=== PATIENT | male | born 1960 | race Hispanic/Latino ===

== ENCOUNTER 2018-01-26 15:00 | Inpatient (IN) | payer OTHER ==
[~2018-01-26] VITALS: Ht 175.3 cm; Wt 126.6 kg
[2018-02-16 16:30] LABS: BASOPHILS % (AUTO) 0.7 % (0.0-5.0); EOSINOPHILS % (AUTO) 4.1 % (0.0-8.0); HEMATOCRIT 42.5 % (42-54); MEAN CORPUSCULAR HEMOGLOBIN 33.4 pg (27.0-33.0); MEAN CORPUSCULAR VOLUME 95.5 fL (79-99); MONOCYTES % (AUTO) 5.1 % (3.0-13.0); NEUTROPHILS % (AUTO) 61.1 % (40.0-77.0); NUCLEATED RED BLOOD CELLS 0.1 % (0.0-0.19); PLATELET COUNT (AUTO) 249 K/uL (130-400); RED BLOOD CELL COUNT(AUTO) 4.45 MIL/uL (4.50-6.20); RED CELL DISTRIBUTION WIDTH 12.4 % (11.0-15.5)
[2018-02-16 16:31] VITALS: BP 124/77
[2018-02-16 16:33] LABS: APPEARANCE,URINE Clear (CLEAR); BILIRUBIN,URINE Negative (NEGATIVE); COLOR,URINE Yellow (YELLOW); GLUCOSE, URINE (UA) Negative (NEGATIVE); KETONES,URINE Negative (NEGATIVE); LEUKOCYTE ESTERASE ,URINE Negative (NEGATIVE); NITRATE,URINE Negative (NEGATIVE); OCCULT BLOOD,URINE Negative (NEGATIVE); PH,URINE 6.5 (5.0-8.0); PROTEIN,URINE Negative (NEGATIVE)
[2018-02-16 16:42] LABS: POTASSIUM 3.8 mmol/L (3.5-5.1)
[2018-02-16 16:52] LABS: INR 0.93 (0.85-1.15); PARTIAL THROMBOPLASTIN TIME 27.5 SEC (26.3-35.5); PROTHROMBIN TIME 9.8 SEC (9.6-11.6)
[2018-02-16] MEDS ORDERED: ATOR40TA71 PO (16:52)
[2018-02-16] MEDS ORDERED: ASPI-1181 PO (16:52)
[2018-02-16] MEDS ORDERED: VENL-63 PO (16:52)
[2018-02-16] MEDS ORDERED: METO-408 PO (16:52)
[2018-02-16] MEDS ORDERED: TRAZ150T79 PO (16:52)
[2018-02-16] MEDS ORDERED: BUSP10TA3 PO (16:52)
[2018-02-16] MEDS: CEFAZOLIN SODIUM 1 GM VIAL IVP SCH (17:45)
[2018-02-17] VITALS (20 sets, daily range): BP systolic 112–154; BP diastolic 67–92
[2018-02-17] MEDS ORDERED: ACETAMINOPHEN EXTRA STRENGTH 500 MG TABLET ONE (08:11)
[2018-02-17] MEDS ORDERED: METOCLOPRAMIDE 10 MG/2 ML VIAL ONE (08:11)
[2018-02-17] MEDS ORDERED: CELECOXIB 200 MG CAP ONE (08:12)
[2018-02-17] MEDS ORDERED: LACTATED RINGERS 1000ML 1,000 ML IV ONE (08:12)
[2018-02-17] MEDS ORDERED: OXYCODONE HCL 10 MG TAB.SR.12H PO ONE (08:12)
[2018-02-17] MEDS ORDERED: KETOROLAC TROMETHAMINE 15MG/ML ONE (08:12)
[2018-02-17] MEDS ORDERED: LIDOCAINE PF 2% 5ML ABBOJECT ONE (08:18)
[2018-02-17] MEDS ORDERED: ROCURONIUM BROMIDE 10MG/1ML 5ML VL ONE (08:18)
[2018-02-17] MEDS ORDERED: MIDAZOLAM HCL 1 MG/ML 2ML VIAL ONE (08:19)
[2018-02-17] MEDS ORDERED: PROPOFOL 10 MG/ML 20ML VIAL IV ONE ×2 (08:19→12:51)
[2018-02-17] MEDS ORDERED: FENTANYL CITRATE PF 50 MCG/1 ML 5ML AMP IV ONE (08:19)
[2018-02-17] MEDS ORDERED: ROPIVACAINE 0.5% 5MG/ML 30ML IJ ONE (08:22)
[2018-02-17] MEDS ORDERED: BUPIVACAINE/PF 0.25% 30ML VIAL IJ ONE (09:37)
[2018-02-17] MEDS ORDERED: EPINEPHRINE 1 MG/ML AMPULE ONE (09:38)
[2018-02-17] MEDS: CEFAZOLIN SODIUM 1 GM VIAL IVP SCH (10:25)
[2018-02-17] MEDS: CEFAZOLIN SODIUM 1 GM VIAL ONE ×2 (10:25→11:50)
[2018-02-17] MEDS: TRANEXAMIC ACID 1000MG/10ML IV ONE ×2 (10:35→13:10)
[2018-02-17] MEDS ORDERED: NEOSTIGMINE 5MG/5ML SYR IV ONE (12:29)
[2018-02-17] MEDS ORDERED: LIDOCAINE HCL-MPF 1% 2ML VIAL IVP PRN (12:45)
[2018-02-17] MEDS ORDERED: OXYCODONE HCL 5 MG TAB PO PRN (12:45)
[2018-02-17] MEDS ORDERED: POTASSIUM CHLORIDE 20 MEQ ERTAB PO PRN (12:45)
[2018-02-17] MEDS ORDERED: KETOROLAC TROMETHAMINE 15MG/ML IV PRN (12:45)
[2018-02-17] MEDS ORDERED: DiphenhydrAMINE HCL 50 MG/ML VIAL IVP PRN (12:45)
[2018-02-17] MEDS ORDERED: TEMAZEPAM 15 MG CAPSULE PO PRN (12:45)
[2018-02-17] MEDS ORDERED: POTASSIUM CHLORIDE 20MEQ/100ML 100 ML IV PRN (12:45)
[2018-02-17] MEDS ORDERED: TRAMADOL HCL 50 MG TABLET PO PRN (12:45)
[2018-02-17] MEDS ORDERED: POTASSIUM CHLORIDE 10% ELIXIR 20 MEQ/15 ML UDCUP PO PRN (12:45)
[2018-02-17] MEDS ORDERED: FERROUS FUMARATE 324 MG TABLET PO PRN (12:45)
[2018-02-17] MEDS ORDERED: CALCIUM CARBONATE 500 MG TABLET PO PRN (12:45)
[2018-02-17] MEDS ORDERED: ONDANSETRON HCL 4 MG/2 ML VIAL IVP PRN (12:45)
[2018-02-17] MEDS ORDERED: GLYCOPYRROLATE 0.2 MG/ML 5 ML VIAL ONE (12:50)
[2018-02-17] MEDS ORDERED: ONDANSETRON HCL MDV 20ML 2 MG/ML VIAL ONE (12:51)
[2018-02-17] MEDS ORDERED: MEPERIDINE-PF 25 MG/ML SYG ONE (13:23)
[2018-02-17] MEDS: SODIUM CHLORIDE 0.9% 1000ML 1,000 ML IV SCH ×2 (14:41→23:07)
[2018-02-17] MEDS: ACETAMINOPHEN EXTRA STRENGTH 500 MG TABLET PO SCH ×2 (14:57→20:47)
[2018-02-17] MEDS: CEFAZOLIN 3GM /D5W 100ML 100 ML IV SCH (17:00)
[2018-02-17] MEDS ORDERED: CEFAZOLIN 3GM /D5W 100ML 100 ML IV SCH (17:45)
[2018-02-17] MEDS ORDERED: CEFAZOLIN SODIUM 1 GM VIAL IVP SCH (17:45)
[2018-02-17] MEDS: TRAZODONE HCL 50 MG TAB PO SCH (20:42)
[2018-02-17] MEDS: BUSPIRONE HCL 5 MG TABLET PO SCH (20:42)
[2018-02-17] MEDS: ATORVASTATIN CALCIUM 40 MG TABLET PO SCH (20:43)
[2018-02-17] MEDS: CELECOXIB 200 MG CAP PO SCH (20:45)
[2018-02-17] MEDS: FAMOTIDINE 20MG TAB 20 MG TAB PO SCH (20:45)
[2018-02-17] MEDS: PREGABALIN 25 MG CAP PO SCH (20:45)
[2018-02-17] MEDS: ASPIRIN 325 MG TABLET PO SCH (20:46)
[2018-02-17] MEDS: VENLAFAXINE HCL XR 37.5 MG CAP PO SCH (20:46)
[2018-02-17] MEDS: METOPROLOL TARTRATE 25 MG TAB PO SCH (20:47)
[2018-02-18] VITALS (7 sets, daily range): BP systolic 118–149; BP diastolic 78–89
[2018-02-18] MEDS: CEFAZOLIN 3GM /D5W 100ML 100 ML IV SCH (02:29)
[2018-02-18] MEDS: ACETAMINOPHEN EXTRA STRENGTH 500 MG TABLET PO SCH ×3 (04:04→19:51)
[2018-02-18 05:16] LABS: HEMATOCRIT 32.8 % (42-54); MEAN CORPUSCULAR HEMOGLOBIN 35.5 pg (27.0-33.0); MEAN CORPUSCULAR VOLUME 95.9 fL (79-99); PLATELET COUNT (AUTO) 224 K/uL (130-400); RED BLOOD CELL COUNT(AUTO) 3.42 MIL/uL (4.50-6.20); RED CELL DISTRIBUTION WIDTH 12.7 % (11.0-15.5); WHITE BLOOD COUNT (AUTO) 8.9 K/uL (4.8-10.8)
[2018-02-18 05:19] LABS: POTASSIUM 3.7 mmol/L (3.5-5.1)
[2018-02-18] MEDS: CELECOXIB 200 MG CAP PO SCH ×2 (08:31→19:52)
[2018-02-18] MEDS: TAMSULOSIN HCL 0.4 MG CAP.ER.24H PO SCH (08:31)
[2018-02-18] MEDS: PREGABALIN 25 MG CAP PO SCH ×2 (08:31→19:45)
[2018-02-18] MEDS: FAMOTIDINE 20MG TAB 20 MG TAB PO SCH ×2 (08:31→19:51)
[2018-02-18] MEDS: SODIUM CHLORIDE 0.9% 1000ML 1,000 ML IV SCH (08:31)
[2018-02-18] MEDS: METOPROLOL TARTRATE 25 MG TAB PO SCH ×2 (08:32→19:46)
[2018-02-18] MEDS: ASPIRIN 325 MG TABLET PO SCH ×2 (08:32→19:45)
[2018-02-18] MEDS: POLYETHYLENE GLYCOL 3350 17 GM POWD.PACK PO SCH (08:32)
[2018-02-18] MEDS: BUSPIRONE HCL 5 MG TABLET PO SCH ×3 (08:35→19:51)
[2018-02-18] MEDS: VENLAFAXINE HCL XR 37.5 MG CAP PO SCH ×2 (08:35→19:51)
[2018-02-18] MEDS: OXYCODONE HCL 5 MG TAB PO PRN ×2 (08:35→18:01)
[2018-02-18] MEDS: ATORVASTATIN CALCIUM 40 MG TABLET PO SCH (19:52)
[2018-02-18] MEDS: TRAZODONE HCL 50 MG TAB PO SCH (19:52)
[2018-02-19] MEDS: ACETAMINOPHEN EXTRA STRENGTH 500 MG TABLET PO SCH ×2 (03:53→11:59)
[2018-02-19 04:00] VITALS: BP 131/85
[2018-02-19] MEDS: POLYETHYLENE GLYCOL 3350 17 GM POWD.PACK PO SCH (08:37)
[2018-02-19] MEDS: PREGABALIN 25 MG CAP PO SCH (08:37)
[2018-02-19] MEDS: TAMSULOSIN HCL 0.4 MG CAP.ER.24H PO SCH (08:37)
[2018-02-19] MEDS: VENLAFAXINE HCL XR 37.5 MG CAP PO SCH (08:37)
[2018-02-19] MEDS: ASPIRIN 325 MG TABLET PO SCH (08:37)
[2018-02-19] MEDS: METOPROLOL TARTRATE 25 MG TAB PO SCH (08:37)
[2018-02-19] MEDS: OXYCODONE HCL 5 MG TAB PO PRN ×2 (08:38→18:20)
[2018-02-19] MEDS: FAMOTIDINE 20MG TAB 20 MG TAB PO SCH (08:38)
[2018-02-19] MEDS: CELECOXIB 200 MG CAP PO SCH (08:38)
[2018-02-19] MEDS: BUSPIRONE HCL 5 MG TABLET PO SCH ×2 (08:38→14:20)
[2018-02-19 11:32] VITALS: BP 136/80
[2018-02-19] MEDS ORDERED: ASPI-1012 PO (14:04)
[2018-02-19] MEDS ORDERED: HYDR-2132 PO (14:04)
[2018-02-19 16:51] VITALS: BP 134/75
[2018-02-20] MEDS ORDERED: BISACODYL 10 MG SUPP.RECT RC PRN (12:45)
== END 2018-02-19 18:40 | disposition home health service (06) | DRG 470 ==
LOC: EDSTATUS 15:00 → DAHIP 02-17 07:24 → 4AH 02-17 13:00
PROVIDERS: ADMIT Orthopaedic Surgery; ATTEND Orthopaedic Surgery
PROC: 0SRD0J9 Replacement of Left Knee Joint with Synthetic Substitute, Cemented, Open Approach (ICD-10-PCS; principal; 2018-02-17 09:30)
DX: M17.12 Unilateral primary osteoarthritis, left knee (principal); G89.29 Other chronic pain; F41.9 Anxiety disorder, unspecified; I10 Essential (primary) hypertension; F32.9 Major depressive disorder, single episode, unspecified; F43.10 Post-traumatic stress disorder, unspecified; Z82.49 Family history of ischemic heart disease and other diseases of the circulatory system
CPT/HCPCS: 36415; 80048; 81003; 85025; 85027; 85610; 85730; 88305; 88311; 96374; 96375; 97039; A4218; J0171; J0690; J1885; J2001; J2175; J2250; J2704; J2710; J2765; J2795; J3010; J3490; J7030; J7120

== ENCOUNTER → 2020-12-12 | Outpatient (CLI) | payer OTHER ==
[~2020-12-12] MED LIST: ASPI-1012 PO; ATOR40TA71 PO; BUSP10TA3 PO; HYDR-2132 PO; METO-408 PO; TRAZ150T79 PO; VENL-63 PO
== END | disposition home or self-care (01) ==
LOC: SHCH 13:18
PROVIDERS: ATTEND Internal Medicine Cardiovascular Disease
DX: I35.8 Other nonrheumatic aortic valve disorders (principal); I10 Essential (primary) hypertension
CPT/HCPCS: 93306

== ENCOUNTER → 2023-03-20 | Outpatient (CLI) | payer OTHER ==
[~2023-03-20] MED LIST changes: +IOHEXOL 350 MG/ML 100ML INFUS..BTL IV ONE
== END | disposition home or self-care (01) ==
LOC: RAH 11:11
PROVIDERS: ATTEND Internal Medicine Cardiovascular Disease
DX: R07.9 Chest pain, unspecified (principal)
CPT/HCPCS: 75574; Q9967

== ENCOUNTER 2025-03-29 17:25 | Emergency (ER) | payer OTHER ==
[~2025-03-29] VITALS: Ht 175.3 cm; Wt 122.5 kg
[~2025-03-29 17:25] MED LIST changes: -IOHEXOL 350 MG/ML 100ML INFUS..BTL IV ONE
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
[2025-03-29 18:06] LABS: IMMATURE GRANULOCYTE ABSOLUTE 0.02 K/uL (0-1); NUCLEATED RED BLOOD CELLS 0.0 % (0.0-0.19); PLATELET COUNT (AUTO) 256 K/uL (130-400); RED BLOOD CELL COUNT(AUTO) 4.49 MIL/uL (4.50-6.20); RED CELL DISTRIBUTION WIDTH 12.2 % (11.0-15.5); WHITE BLOOD COUNT (AUTO) 6.5 K/uL (4.8-10.8)
[2025-03-29] MEDS: LIDOCAINE HCL 2% VISCOUS 15 ML UDCUP PO ONE (18:07)
[2025-03-29] MEDS: MAG/ALUM/SIMETH 30 ML UDCUP PO ONE (18:07)
[2025-03-29] MEDS: DICYCLOMINE HCL 10 MG/5 ML ML PO ONE (18:07)
[2025-03-29 18:18] LABS: CREATININE 1.1 mg/dL (0.5-1.3); GLOMERULAR FILTR. RATE CALC 75.0 mL/min (>90); GLUCOSE,RANDOM 189.0 mg/dL (70-105); SODIUM SERUM 139.0 mmol/L (136-145); UREA NITROGEN, BLOOD 12.0 mg/dL (7-18)
[2025-03-29 18:23] LABS: ASPARTATE AMINOTRANSFERASE 33.0 U/L (10-37); CREATINE KINASE, TOTAL 67.0 U/L (21-232); TOTAL PROTEIN, SERUM 7.9 g/dL (6.0-8.3)
--- NOTE | 2025-03-29 18:23 | HMCIMG ---
EXAM: CR Chest, 1 View. CLINICAL HISTORY: cp COMPARISON: None provided. FINDINGS: LUNGS: The lungs show no infiltrate or other acute finding. PLEURAL SPACES: No evidence of pleural effusion or pneumothorax. MEDIASTINUM: Cardiac size and mediastinal contours within normal limits. BONES: No aggressive appearing osseous lesion seen. IMPRESSION: No acute cardiopulmonary pathology is evident. /[place]
[2025-03-29 18:26] LABS: APPEARANCE,URINE CLEAR (CLEAR); GLUCOSE, URINE (UA) 300 mg/dL (NEGATIVE); LEUKOCYTE ESTERASE ,URINE NEGATIVE Leu/uL (NEGATIVE); NITRATE,URINE NEGATIVE (NEGATIVE); OCCULT BLOOD,URINE NEGATIVE (NEGATIVE)
[2025-03-29 18:40] LABS: ADD UA MICROSCOPIC YES
[2025-03-29 18:42] LABS: SQUAMOUS EPITHELIAL CELL,UR RARE /HPF (0-2)
[2025-03-29] MEDS: CYCLOBENZAPRINE HCL 10 MG TABLET PO ONE (18:48)
[2025-03-29] MEDS ORDERED: CYCL10TA16 PO (18:58)
[2025-03-29] MEDS ORDERED: MELO-106 PO (18:58)
[2025-03-29 19:17] VITALS: BP 159/90; PULSE 82; RESP 16; TEMP 97; O2SAT 97
--- NOTE | 2025-03-30 07:04 | EKG ---
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
== END 2025-03-29 19:22 | disposition home or self-care (01) ==
LOC: EDH 17:25
DX: S16.1XXA Strain of muscle, fascia and tendon at neck level, initial encounter (principal); R07.89 Other chest pain; R10.13 Epigastric pain; E78.00 Pure hypercholesterolemia, unspecified; F32.A Depression, unspecified; F43.10 Post-traumatic stress disorder, unspecified; I10 Essential (primary) hypertension; Z79.1 Long term (current) use of non-steroidal anti-inflammatories (NSAID); Z79.82 Long term (current) use of aspirin; Z79.899 Other long term (current) drug therapy; X58.XXXA Exposure to other specified factors, initial encounter; Y93.89 Activity, other specified; Y92.89 Other specified places as the place of occurrence of the external cause; Y99.8 Other external cause status
CPT/HCPCS: 99285; 71045; 82550; 80076; 84484; 80048; 83690; 85025; 81001; 36415; 96372; 93005; J1885

== ENCOUNTER 2025-07-28 19:58 | Emergency (ER) | payer OTHER ==
[~2025-07-28] VITALS: Ht 177.8 cm; Wt 112.0 kg
[~2025-07-28 19:58] MED LIST changes: +CYCL10TA16 PO; +MELO-106 PO
--- NOTE | 2025-07-28 20:13 | ERN ---
ED Note History of Present Illness Stated Complaint: WHEEZING, SOB Chief Complaint: Multiple Complaints Time Seen by MD: 20:00 Dictation: PATIENT IS A 65-YEAR-OLD MALE COMING IN WITH HIS WITH COMPLAINTS OF FEVER CHILLS A PRODUCTIVE COUGH AND BODY ACHES FOR THE LAST SEVEN DAYS. HE HAS HAD NO NAUSEA VOMITING NO LOSS OF TASTE OR SMELL. STATES HE HAS A HISTORY OF CHOLESTEROL AND HYPERTENSION HAS NOT BEEN TAKING HIS MEDICATIONS BECAUSE HE HAS BEEN DRINKING WE WILL NYQUIL [id number] FOR HIS FEVER CHILLS. STATES HE GOES TO THE [facility] HOWEVER DID NOT GOT GO BECAUSE HE WAS NOT SURE THEY WOULD SEE HIM HAS A WALK. Allergies: Coded Allergies: No Known Drug Allergies (Unverified Allergy, Unknown, 02/16/18) Home Meds Active Scripts Cyclobenzaprine HCl (Flexeril) 10 Mg Tab, 10 MG PO TID for muscle sstiffness, #14 TAB 0 Refills Prov:MICHAEL ORTIZ 03/29/25 Meloxicam (Meloxicam) 7.5 Mg Tablet, 1 TAB PO DAILY for pain for 30 Days, #30 TAB 0 Refills Prov:MICHAEL ORTIZ 03/29/25 Hydrocodone Bit/Acetaminophen ([place] 5/325Mg) 1 Tab Tablet, 1-2 TAB PO Q6H for pain, #90 TAB Prov:DIPAK ORLANDO MD 02/19/18 Aspirin (ASPIRIN) 325 Mg Tablet, 325 MG PO BID, #40 TAB Prov:DIPAK ORLANDO MD 02/19/18 Reported Medications Metoprolol Succinate (Metoprolol Succinate) 25 Mg Tab.er.24h, 25 MG PO HS, TAB 02/16/18 Atorvastatin Calcium (Atorvastatin Calcium) 40 Mg Tablet, 40 MG PO HS, TAB 02/16/18 Buspirone HCl (Buspirone HCl) 10 Mg Tablet, 20 MG PO TID, TAB 02/16/18 Venlafaxine HCl (Venlafaxine HCl ER) 150 Mg Cap.er.24h, 150 MG PO BID, CAPSULE.DR 02/16/18 Trazodone HCl (Trazodone HCl) 150 Mg Tablet, 150 MG PO HS, TAB 02/16/18 Past Medical History Past Medical History: Anxiety, Depression, High Cholesterol, Heart Disease, Hypertension, Other Additional Past Medical Hx: PTSD Surgical History: Other Surgical History Other: LEFT KNEE RN Note Reviewed/Agreed w/PFSH: Yes Review of System Dictation CONSTITUTIONAL: NEGATIVE EXCEPT FOR HPI FEVER CHILLS/SHE WILL BE W HEAD/FACE: NEGATIVE EXCEPT FOR HPI EENT: NEGATIVE EXCEPT FOR HPI CLEAR RHINITIS WITH SORE THROAT RESPIRATORY: NEGATIVE EXCEPT FOR HPI PRODUCTIVE COUGH GASTROINTESTINAL/ABDOMINAL: NEGATIVE EXCEPT FOR HPI GENITOURINARY: NEGATIVE EXCEPT FOR HPI MUSCULOSKELETAL: NEGATIVE EXCEPT FOR HPI INTEGUMENTARY: NEGATIVE EXCEPT FOR HPI NEUROLOGICAL/PSYCH: NEGATIVE EXCEPT FOR HPI HEMATOLOGIC/LYMPHATIC: NEGATIVE EXCEPT FOR HPI ALL SYSTEMS NEGATIVE, EXCEPT NOTED ABOVE. 13 POINT REVIEW OF SYSTEMS ASSESSED AND ALL NEGATIVE EXCEPT FOR ABOVE. Initial Vital Sign VS Vital Signs Date Time Temp Pulse Resp B/P (MAP) Pulse Ox O2 Delivery O2 Flow Rate FiO2 07/28/25 20:00 98.1 127 20 155/103 98 Room Air 07/28/25 21:10 0 21 Physical Exam Dictation VITAL SIGNS REVIEWED GENERAL APPEARANCE: ALERT, ORIENTED X 3, MODERATE ACUTE DISTRESS, WELL DEVELOPED, NOURISHED. HEAD AND FACE: NON-TRAUMATIC. EYES: PERRL, PINK CONJUNCTIVAS, EYELID NO TRAUMA, ANTERIOR CHAMBER WITH ARCUS SENILIS. EARS: PINNAS INTACT AND NO SIGNS OF TRAUMA OR ERYTHEMA EAR CANALS CLEAR AND NO DISCHARGE TM NO ERYTHEMA NOSE: CLEAR HARGE, NO BLEEDING. OROPHARYNX: MOUTH NORMAL, TONGUE PINK, PHARYNX CLEAR, MODERATE ERYTHEMA ERYTHEMA, TONSILS NO EXUDATES, NO ABSCESSES NOTED, MUCOUS MEMBRANE MOIST UVULA MIDLINE, VOICE IS CLEAR NECK: SUPPLE, NON-TENDER, NO THYROMEGALY, NO MASSES, NO JVD, NO BRUITS BREAST:DEFERRED CHEST:NO TENDERNESS, NO CREPITUS, NO PARADOXICAL MOVEMENT, NO RETRACTIONS LUNGS:CLEAR, WELL-VENTILATED, SYMMETRIC, NO RALES, NO WHEEZING, NO RHONCHI, NO STRIDOR, GOOD BREATH SOUNDS BILATERALLY HEART: REGULAR RATE, REGULAR RHYTHM, NO MURMUR, NO GALLOPS VASCULAR: NO PERIPHERAL EDEMA, ABDOMEN: SOFT, POSITIVE BOWEL SOUNDS, NONDISTENDED, NO GUARDING, NONTENDER, NO REBOUND, NO MASSES NO HEPATOMEGALY, NO SPLENOMEGALY, NO BANERJEE'S SIGN, NO HERNIAS. RECTAL: DEFERRED GENITAL: DEFERRED NEUROLOGICAL: NORMAL SPEECH, MOTOR FUNCTION INTACT, SENSORY FUNCTION INTACT MUSCULOSKELETAL: NECK NONTENDER, FULL RANGE OF MOTION, BACK NONTENDER, FULL RANGE OF MOTION, EXTREMITIES: NONTENDER, FULL RANGE OF MOTION SKIN: COLOR PINK, DRY, NO TURGOR, NO RASH, NO LACERATIONS, NO ABRASIONS, NO CONTUSIONS. LYMPHATIC: DEFERRED Results (Laboratory/Radiology) Laboratory/Radiology Laboratory Tests Test 07/28/25 20:23 07/28/25 20:54 07/28/25 23:38 Influenza Type A Antigen Positive For Type A Influenza Type B Antigen Negative For Type B SARS-CoV-2 Antigen (Rapid) PRESUMPTIVE NEGATIVE Group A Streptococcus Rapid positive (NEGATIVE) *A White Blood Count 5.2 K/uL (4.8-10.8) Red Blood Count 4.56 MIL/uL (4.50-6.20) Hemoglobin 14.9 g/dL (14.0-18.0) Hematocrit 42.1 % (42-54) Mean Corpuscular Volume 92.3 fL (79-99) Mean Corpuscular Hemoglobin 32.7 pg (27.0-33.0) Mean Corpuscular Hemoglobin Concent 35.4 g/dL (32.0-36.0) Red Cell Distribution Width 12.3 % (11.0-15.5) Platelet Count 220 K/uL (130-400) Mean Platelet Volume 10.3 fL (7.5-10.5) Immature Granulocyte % (Auto) 0.4 % (0-1) Neutrophils (%) (Auto) 64.1 % (40.0-77.0) Lymphocytes (%) (Auto) 27.1 % (21.0-51.0) Monocytes (%) (Auto) 6.5 % (3.0-13.0) Eosinophils (%) (Auto) 1.7 % (0.0-8.0) Basophils (%) (Auto) 0.2 % (0.0-5.0) Neutrophils # (Auto) 3.3 K/uL (1.8-7.7) Lymphocytes # (Auto) 1.4 K/uL (1.0-4.8) Monocytes # (Auto) 0.3 K/uL (0.1-1.0) Eosinophils # (Auto) 0.09 K/uL (0.00-0.70) Basophils # (Auto) 0.01 K/uL (0.00-0.20) Absolute Immature Granulocyte (auto 0.02 K/uL (0-1) Nucleated Red Blood Cells 0.0 % (0.0-0.19) Sodium Level 137 mmol/L (136-145) Potassium Level 3.0 mmol/L (3.5-5.1) *L Chloride Level 101 mmol/L (101-111) Carbon Dioxide Level 25 mmol/L (21-32) Blood Urea Nitrogen 12 mg/dL (7-18) Creatinine 0.9 mg/dL (0.5-1.3) Glomerular Filtration Rate Calc 95 mL/min (>90) Random Glucose 110 mg/dL (70-105) H Lactic Acid Level 3.9 mmol/L (0.8-2.5) H 2.0 mmol/L (0.8-2.5) Total Calcium 8.8 mg/dL (8.5-10.1) Magnesium Level 2.20 mg/dL (1.80-2.40) Troponin I High Sensitivity 11 ng/L (4-75) Labs Reviewed?: Yes EKG Comment: 207/EKG SINUS TACHYCARDIA/HEART RATE 105/AXIS NORMAL/NO ECTOPY ED Course ED Course Orders Procedure Category Date Status Time 12 Lead Ekg Tracing- EKG 07/28/25 Logged Technical 20:01 Blood Cult BONITA 07/28/25 In Process 20:08 Lactic Acid LAB 07/28/25 Complete 20:08 Covid19 (Sars Antigen LAB 07/28/25 Complete Rapid) 20:08 Influenza Type A & B, LAB 07/28/25 Complete Rapid 20:08 Cbc With Differential LAB 07/28/25 Complete 20:08 Chest 1vw RAD 07/28/25 Resulted 20:08 12 Lead Ekg Tracing- EKG 07/28/25 Logged Technical 20:08 Magnesium LAB 07/28/25 Complete 20:08 Troponin I High LAB 07/28/25 Complete Sensitivity 20:08 Urinalysis Profile LAB 07/28/25 Logged 20:08 Basic Metabolic Panel LAB 07/28/25 Complete 20:08 Rapid (Group A Strep) LAB 07/28/25 Complete 20:37 0.9%Nacl 1000ml (Ns PHA 07/28/25 Complete 1000ml) 21:30 Ceftriaxone 2gm Vial PHA 07/28/25 Complete (Rocephin 2gm Inj) 21:30 Oseltamivir Phosphate PHA 07/28/25 Complete (Tamiflu) 21:30 Potassium Bicarb/Cit PHA 07/28/25 Complete Ac 25meq (K-Lyte Ta 22:00 0.9%Nacl 1000ml (Ns PHA 07/28/25 In Process 1000ml) 22:00 Lactic Acid LAB 07/28/25 Complete 23:32 Current Medications Medications (Trade) Dose Ordered Sig/Margret Route PRN Reason Start Time Stop Time Status Last Admin Dose Admin Ceftriaxone Sodium (Rocephin 2gm Inj) 2 gm ONCE ONCE IVPB 07/28/25 21:30 07/28/25 21:31 DC 07/28/25 21:52 Oseltamivir Phosphate (Tamiflu) 75 mg ONCE ONCE PO 07/28/25 21:30 07/28/25 21:31 DC 07/28/25 21:52 Potassium Bicarbonate (K-Lyte Tablet Eff 25 Meq Tablet.eff) 50 meq ONCE ONCE PO 07/28/25 22:00 07/28/25 22:01 DC 07/28/25 21:52 Sodium Chloride 1,000 ml @ 0 mls/hr ONCE ONCE IV 07/28/25 21:30 07/28/25 21:31 DC Sodium Chloride 3,360 ml @ 1,120 mls/hr ONCE ONCE IV 07/28/25 22:00 07/29/25 00:59 07/28/25 21:52 Vital Signs Date Time Temp Pulse Resp B/P (MAP) Pulse Ox O2 Delivery O2 Flow Rate FiO2 07/28/25 22:53 98.6 95 18 140/75 97 Room Air* 0 07/28/25 21:55 93 20 123/77 95 Room Air* 0 07/28/25 21:10 99.5 97 18 123/77 95 Room Air* 0 07/28/25 20:00 98.1 127 20 155/103 98 Room Air HEART Score Response (Comments) Value History: Low suspicion (0) 0 Age: 45-65yrs (+1) 1 Risk Factors: 1-2 risk factors (+1) 1 Initial Troponin: Normal limit (0) 0 Total 2 Medical Decision Making MDM MDM: PATIENT IS A 65-YEAR-OLD MALE COMING IN WITH HIS WITH COMPLAINTS OF FEVER CHILLS A PRODUCTIVE COUGH AND BODY ACHES FOR THE LAST SEVEN DAYS. HE HAS HAD NO NAUSEA VOMITING NO LOSS OF TASTE OR SMELL. STATES HE HAS A HISTORY OF CHOLESTEROL AND HYPERTENSION HAS NOT BEEN TAKING HIS MEDICATIONS BECAUSE HE HAS BEEN DRINKING WE WILL NYQUIL [id number] FOR HIS FEVER CHILLS. [facility] HOWEVER DID NOT GOT GO BECAUSE HE WAS NOT SURE THEY WOULD SEE HIM HAS A WALK. Blood work unremarkable other than lactic of 3.1, positive for influenza and strep. Fluids, antibiotics initiated given in the ER. Patient will be discharged with antibiotics for the strep throat and Tamiflu for the flu. After fluids, lactic level is now two. Patient's vital signs have remained stable. Educated on findings and when to return back to the ER. Patient and spouse verbalized understanding, answered all questions. Differential diagnosis:, COVID, flu, influenza, viral syndrome Rationale: Tests considered and ordered secondary to shared decision making include: Previous outside records reviewed: Old ER visits. Risk of complication and/or morbidity or mortality of patient management: None Medications-Per medication reconciliation Need for hospitalization: Patient does not meet criteria for hospitalization. Need for emergency major/minor surgery: No There are no social concerns with this patient. Prescription drug management Prescriptions will include symptomatic care Patient's prior external medical records from other ER visits were reviewed by me as indicated. Prior testing and results from previous visits were reviewed. Prior tests were taken into account with medical decision making and resource utilization, independent historian/historians were used to obtain complete medical history. I independently interpreted the test that were performed, results were reviewed by me and considered findings on radiology if ordered. Medical management and examination interpretation discussions were had by me with other qualified healthcare professionals as indicated for the patient's care. DX & DISP Disposition: Discharge Departure Impression: Primary Impression: Influenza A Additional Impression: Strep pharyngitis Condition: Stable Scripts Amoxicillin/Potassium Clav (Amox Tr-K Clv 875-125 mg Tab) 875 Mg-125 Mg Tablet 1 EACH PO BID for 5 Days, #10 TAB 0 Refills Prov: GREGORIA CABALLERO ERGONOMICS ENGINEER 07/28/25 Oseltamivir Phosphate (Tamiflu) 75 Mg Cap 75 MG PO BID for 5 Days, #10 CAP Prov: GREGORIA CABALLERO ERGONOMICS ENGINEER 07/28/25 Additional Instructions: Take medications as prescribed. Stay hydrated. Follow up with PCP in 1-2 days. Return to ER as needed. Referrals: LO BROOKS MD (PCP) Time of Disposition: 23:48 I have reviewed the case, and I agree with, Diagnosis and Plan BUSHRA PADRON PERSONNEL REPRESENTATIVE Jul 28, 2025 20:13 GREGORIA CABALLERO ERGONOMICS ENGINEER Jul 28, 2025 23:50
[2025-07-28 20:43] LABS: INFLUENZA TYPE B Negative For Type B (NEGATIVE)
[2025-07-28 20:50] LABS: INFLUENZA TYPE A Positive For Type A (NEGATIVE)
[2025-07-28 20:51] LABS: COVID19 (SARS ANTIGEN RAPID) PRESUMPTIVE NEGATIVE (NEGATIVE)
[2025-07-28 21:03] LABS: IMMATURE GRANULOCYTE ABSOLUTE 0.02 K/uL (0-1); NUCLEATED RED BLOOD CELLS 0.0 % (0.0-0.19); PLATELET COUNT (AUTO) 220 K/uL (130-400); RED BLOOD CELL COUNT(AUTO) 4.56 MIL/uL (4.50-6.20); RED CELL DISTRIBUTION WIDTH 12.3 % (11.0-15.5); WHITE BLOOD COUNT (AUTO) 5.2 K/uL (4.8-10.8)
[2025-07-28 21:18] LABS: CREATININE 0.9 mg/dL (0.5-1.3); GLOMERULAR FILTR. RATE CALC 95.0 mL/min (>90); GLUCOSE,RANDOM 110.0 mg/dL (70-105); SODIUM SERUM 137.0 mmol/L (136-145); UREA NITROGEN, BLOOD 12.0 mg/dL (7-18)
[2025-07-28] MEDS: OSELTAMIVIR PHOSPHATE 75 MG CAP PO ONE (21:52)
[2025-07-28] MEDS: 0.9%NACL 1000ML 1,000 ML IV ONE (21:53)
--- NOTE | 2025-07-28 22:22 | HMCIMG ---
EXAM: CR Chest, 1 View. CLINICAL HISTORY: SHORTNESS A BREATH/CHEST PAIN/COUGH COMPARISON: None provided. FINDINGS: LUNGS: The lungs show no infiltrate or other acute finding. PLEURAL SPACES: No evidence of pleural effusion or pneumothorax. MEDIASTINUM: Cardiac size and mediastinal contours within normal limits. BONES: No acute osseous abnormality. IMPRESSION: No acute cardiopulmonary pathology is evident. /[place]
[2025-07-28] MEDS ORDERED: OSEL75 PO (23:48)
[2025-07-28] MEDS ORDERED: AMOX1TAB16 PO (23:48)
[2025-07-28 23:55] VITALS: BP 133/68; PULSE 85; RESP 18; TEMP 98.6; O2SAT 98
--- NOTE | 2025-07-29 01:28 | EKG ---
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
== END 2025-07-29 00:01 | disposition home or self-care (01) ==
LOC: EDH 19:58
DX: J10.1 Influenza due to other identified influenza virus with other respiratory manifestations (principal); J02.0 Streptococcal pharyngitis; E78.00 Pure hypercholesterolemia, unspecified; I11.9 Hypertensive heart disease without heart failure; F41.9 Anxiety disorder, unspecified; F32.A Depression, unspecified; Z79.82 Long term (current) use of aspirin; Z79.1 Long term (current) use of non-steroidal anti-inflammatories (NSAID); Z79.899 Other long term (current) drug therapy; Z20.822 Contact with and (suspected) exposure to COVID-19
CPT/HCPCS: 99285; 96365; 71045; 87426; 83735; 84484; 80048; 85025; 87040 ×2; 87880; 87804 ×2; 83605 ×2; 36415; 93005; J7030; J0696